=== PATIENT | female | born 2000 | race Two or more races ===

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

== ENCOUNTER 2025-05-30 18:56 | Emergency (ER) | payer MEDICAID ==
[~2025-05-30] VITALS: Ht 162.6 cm; Wt 59.0 kg
[2025-05-30] MEDS: LABETALOL HCL 20 MG/4 ML VL IV ONE (21:15)
--- NOTE | 2025-05-30 21:18 | ED.PDOC ---
HPI Comments 25 y/o F is BIBA from private residence for c/c of hypertension. hypertension, pressure-like chest pain, shortness of breath, blurry vision, and near-syncope. Patient endorses on sudden and unprovoked onset of symptoms, this evening. She states on taking twice her normal dose of Amolodipine (5mg, daily; took 10mg today). Patihenri's blood pressure is, usually, elevated at 170 systolic range. Previous episode of similar symptoms 1 month ago. Patient mentions also having cough and congestion for 1 month. No loss of consciousness. Past medical history: HTN Past surgical history: denies HPI: Poor Historian. REVIEW OF SYSTEMS: CONSTITUTIONAL: Denies acute: fever, diaphoresis, chills, generalized weakness. HEAD: Denies acute: headache, photophobia Eyes: Denies acute: Double vision, vision loss, eye pain, eye discharge. EARS: Denies acute: tinnitus, hearing loss, ear discharge, ear pain, THROAT: Denies acute: sore throat, swelling, difficulty swallowing , pain with swallowing, change in voice. NECK: Denies acute: neck pain, neck swelling, stiff neck. HEART: Denies acute : palpitations, LUNGS: Denies acute: wheezing, cough, hemoptysis ABDOMEN: Denies acute: abdominal pain, Vomiting, diarrhea, melena , hematemesis, hematochezia SKIN: Denies acute: rash, redness, lesions, itchiness. EXTREMITIES: Denies acute: calf pain, numbness, tingling, weakness, denies pain in extremity. Denies acute: Low back pain. Neuro: Denies acute: focal neurological deficit, motor or sensory focal neurological deficit, tremors, seizure like activity, confusion, change in mental status, loss of bowel or bladder function, cauda equina like symptoms. : Denies acute: dysuria, hematuria, flank pain, increase in urinary frequency. PSYCH: Denies acute: hallucination, suicidal ideation, homicidal ideation. FEMALE: Denies acute: abnormal vaginal bleeding, foul odor, unusual discharge. PHYSICAL EXAM: General: ----mild----acute distress, awake and alert. Head: normocephalic, atraumatic. No raccoon's eyes, no to sign. Neck: supple, trachea is midline, no swelling. Throat: Normal phonation. Eyes:, no erythema, no purulent discharge, no proptosis, no icterus. Heart: regular rate, regular rhythm, no significant murmur appreciated. Lungs: no apparent respiratory distress, Able to speak in full sentences. No wheezing, no rhonchi, no crackles. No stridors Clear to auscultation bilaterally. Abdomen: non tender to palpation, non distended, soft, no guarding, no rebound, + bowel sounds. Neuro: Awake, Alert, oriented to name, self, situation, follows commands GCS=15. Speech is normal. Skin: no petechia, no purpura, no cyanosis, non-pale, not jaundice. Lower extremities: --no - Pitting edema no deformity, no focal swelling, no calf TTP. Makes eye contact. moves all four extremities. Face: no apparent facial droop. ED COURSE: DISCLAIMER: This medical document was created using an electronic medical record system with voice recognition software and computerized dictation system. Although this document has been carefully reviewed, there might still be some phonetic and typographical errors. Occasional wrong-word or "sound-alike" substitutions may have occurred due to the inherent limitations of voice recognition software. These areas are purely typographical due to imperfections of the software programs and do not reflect any compromise in the patient's medical care. Please read the chart carefully and recognize, using context, where these substitutions have occurred. Chief Complaint: Dizziness Time Seen by MD: 21:10 Primary Care Provider: [facility] Reviewed Notes: Allergies Allergies: Coded Allergies: NO KNOWN ALLERGIES (Unverified , 07/30/14) Information Source: Patient Mode of Arrival: EMS Family History Family History: Unknown Social History Smoker: Non-Smoker Lives In: Home Was a procedure done? Was a procedure done?: No CP Differential Dx Differential Diagnosis: N/A Differential Diagnosis: Other (Insert hypotension evaluation) X-Ray, Labs, Meds, VS Vital Signs Date Time Temp Pulse Resp B/P (MAP) Pulse Ox O2 Delivery O2 Flow Rate FiO2 05/31/25 04:02 98 Room Air* 0 21 05/31/25 03:50 98.0 82 18 155/104 (121) 96 98.0 05/31/25 03:14 97.5 80 18 145/92 (109) 98 97.5 05/30/25 23:21 81 05/30/25 23:01 98.2 82 16 136/89 (105) 94 98.2 05/30/25 21:28 161/116 05/30/25 21:15 87 157/103 05/30/25 21:13 98.4 82 16 161/116 (131) 99 98.4 05/30/25 19:23 98.3 80 18 178/113 98 98.3 Lab Test 05/30/25 22:20 05/30/25 21:17 Range/Units Troponin I High Sensitivity < 3 L < 3 L </=34 ng/L White Blood Count 7.1 4.4-10.8 10^3/uL Red Blood Count 4.45 4.0-5.20 10^6/uL Hemoglobin 15.4 12.2-16.2 g/dL Hematocrit 43.5 36.0-46.0 % Mean Corpuscular Volume 97.8 80.0-100.0 fL Mean Corpuscular Hemoglobin 34.6 H 28.0-32.0 pg Mean Corpuscular Hemoglobin Concent 35.4 32.0-36.0 g/dL Red Cell Distribution Width 12.4 11.8-14.3 % Platelet Count 315 140-450 10^3/uL Mean Platelet Volume 7.8 6.9-10.8 fL Neutrophils (%) (Auto) 63.3 37.0-80.0 % Lymphocytes (%) (Auto) 27.9 10.0-50.0 % Monocytes (%) (Auto) 8.0 0.0-12.0 % Eosinophils (%) (Auto) 0.3 0.0-7.0 % Basophils (%) (Auto) 0.5 0.0-2.0 % Neutrophils # (Auto) 4.5 1.6-8.6 10 ^3/uL Lymphocytes # (Auto) 2.0 0.4-5.4 10 ^3/uL Monocytes # (Auto) 0.6 0-1.3 10 ^3/uL Eosinophils # (Auto) 0 0-0.8 10 ^3/uL Basophils # (Auto) 0 0-0.2 10 ^3/uL Nucleated Red Blood Cells 0.1 % Sodium Level 139 136-145 mmol/L Potassium Level 4.0 3.5-5.1 mmol/L Chloride Level 105 98-107 mmol/L Carbon Dioxide Level 25 20-31 mmol/L Anion Gap 9 5-15 Blood Urea Nitrogen 8 L 9-23 mg/dL Creatinine 0.83 0.550-1.02 mg/dL Glomerular Filtration Rate Calc 102 >90 mL/min BUN/Creatinine Ratio 9.6 L 10.0-20.0 Serum Glucose 76 74-106 mg/dL Calcium Level 10.1 8.7-10.4 mg/dL Total Bilirubin 0.6 0.2-1.0 mg/dL Aspartate Amino Transferase (AST) 98 H 13-40 U/L Alanine Aminotransferase (ALT) 116 H 7-40 U/L Alkaline Phosphatase 108 46-116 U/L Total Protein 7.9 5.7-8.2 g/dL Albumin 4.8 3.2-4.8 g/dL Current Medications Medications (Trade) Dose Ordered Sig/Fabiana Route Start Time Stop Time Status Last Admin Labetalol HCl (Labetalol HCl) 5 mg ONCE ONCE IV 05/30/25 21:15 05/30/25 21:16 DC 05/30/25 21:15 Nitroglycerin (Ntrostat Sublingual) 0.4 mg ONCE ONCE SL 05/30/25 21:15 05/30/25 21:16 DC 05/30/25 21:28 [place] [id number] Ph: [phone] DIAGNOSTIC IMAGING Diagnostic Imaging Report : [id number] Signed PATIENT: ZION REILLY ACCT: [id number] UNIT: [id number] : 2000 LOC: ER ROOM / BED: / AGE / SEX: 25 / F ADM STATUS: REG ER SERVICE 00 ORDERING PHYSICIAN: CATHI KAY DO PROCEDURE(s): CXRP - CHEST PORTABLE REASON: HTN ORDER NUMBER(s): [id number], ACCESSION NUMBER(s): [id number] CHEST RADIOGRAPH Indication: HTN Technique: Single frontal view of the chest was obtained COMPARISON: None FINDINGS: Lines and Tubes: None Lungs: Clear Pleura: No effusion. No pneumothorax. Cardiomediastinal contours: Unremarkable Bones: Unremarkable IMPRESSION: 1. No acute disease. ATED BY: PAUL HELLER MD DICTATED DATE/TIME: 05/30/252154 SIGNED BY: PAUL HELLER MD SIGNED DATE/TIME: 05/30/252154 CC: Time of 1ST Reevaluation: 21:10 Reevaluation 1ST: Unchanged Time of 2ND Reevaluation: 23:16 (The case was discussed with the [place] admitting team (HPI, physical exam, labs and diagnostic tests that were available at the time of disposition, ED course, treatment plan) on the phone. They agreed to transfer the patient to their service by [facility] for further evaluation and treatment. Dr. Monique Authorization number is--[id number]) Patient Education/Counseling: Diagnosis, Treatment Family Education/Counseling: Diagnosis, Treatment Comments MDM: patient presented with the above HPI.--hypertensive crisis----workup was initiated. patient was found with the above mentioned diagnosis. the following medications were ordered: please refer to order lists of meds and tests obtained by myself Dr. Kay. Patient ED course and VS have been stabilized. Patient has been reassessed in the ED and remained in a stable condition. Pertinent incidental findings were discussed with the patient and/or family. Patient/family voices understanding and is agreeable with plan. Patient has been observed in the ED adequate length of time to insure improvement/stability. Escalation of care considered: Consideration of escalation to observation or admission Patient required IV blood pressure medication interventions for blood pressure control. Patient was transferred to [facility] per insurance requirement to the medicine team for further evaluation and treatment of their presentation. All the reports of any imaging studies that were ordered by myself were reviewed by myself. SEPSIS Sepsis Screen Date sepsis recognized/suspect: May 30, 2025 Time Sepsis recognized/suspect: 1914 Recent Procedure: No On Antibiotic Therapy: No Respiratory Rate >20: No Heart Rate >90: No Temp<36 C (96.8 F) or >38.3 C: No SBP <90 or MAP <65 mmHG: No New Acute Mental Status Change: No Is the patient on CPAP, BIPAP,: No Physician Orders Footwear Sales Associate (05/30/25 ) Chest Portable (05/30/25 21:01) Electrocardigram (05/30/25 21:01) Imaging Transfer Request (05/31/25 00:44) Vital Signs Date Time Temp Pulse Resp B/P (MAP) Pulse Ox O2 Delivery O2 Flow Rate FiO2 05/31/25 04:02 98 Room Air* 0 21 05/31/25 03:50 98.0 82 18 155/104 (121) 96 98.0 05/31/25 03:14 97.5 80 18 145/92 (109) 98 97.5 05/30/25 23:21 81 05/30/25 23:01 98.2 82 16 136/89 (105) 94 98.2 05/30/25 21:28 161/116 05/30/25 21:15 87 157/103 05/30/25 21:13 98.4 82 16 161/116 (131) 99 98.4 05/30/25 19:23 98.3 80 18 178/113 98 98.3 Laboratory Tests Test 05/30/25 21:17 White Blood Count 7.1 10^3/uL (4.4-10.8) Departure 1 Departure Time of Disposition: 21:48 Impression: Primary Impression: Hypertensive crisis Disposition: 02 SHORT TERM HOSPITAL Admit to: Tele Condition: Guarded Discharged With: Self Critical Care Note Critical Care Time?: Yes (45 min-critical care time only) Critical care comment: Due to a high probability of clinically significant, life threatening deterioration, the patient required my highest level of preparedness to intervene emergently and I personally spent this critical care time directly and personally managing the patient. This critical care time included obtaining a history; examining the patient; pulse oximetry; ordering and review of studies; arranging urgent treatment with development of a management plan; evaluation of patient's response to treatment; frequent reassessment; and, discussions with other providers. This critical care time was performed to assess and manage the high probability of imminent, life-threatening deterioration that could result in multi-organ failure. It was exclusive of separately billable procedures and treating other patients and teaching time. Please see my other sections and the rest of the note for further information on patient assessment and treatment. I personally scribed for CATHI KAY DO ([email or web address]) on 05/30/25 at 21:18. Electronically submitted by Luis Miguel Velarde ([email or web address]). I personally scribed for CATHI KAY DO ([email or web address]) on 05/30/25 at 22:08. Electronically submitted by Luis Miguel Velarde ([email or web address]). CATHI KAY DO May 30, 2025 21:18
[2025-05-30] MEDS ORDERED: NITROGLYCERIN 0.4 MG SL TAB SL ONE (21:27)
[2025-05-30] MEDS: NITROGLYCERIN 0.4 MG SL TAB SL ONE (21:28)
[2025-05-30 21:39] LABS: Hemoglobin 15.4 g/dL (12.2-16.2); Mean Corpuscular Volume 97.8 fL (80.0-100.0); Nucleated Red Blood Cells % 0.1 %
[2025-05-30 21:41] LABS: Hematocrit 43.5 % (36.0-46.0); Mean Corpuscular Hemoglobin 34.6 pg (28.0-32.0)
--- NOTE | 2025-05-30 21:57 | DVH ---
CHEST RADIOGRAPH Indication: HTN Technique: Single frontal view of the chest was obtained COMPARISON: None FINDINGS: Lines and Tubes: None Lungs: Clear Pleura: No effusion. No pneumothorax. Cardiomediastinal contours: Unremarkable Bones: Unremarkable IMPRESSION: 1. No acute disease.
[2025-05-30 22:00] LABS: Alkaline Phosphatase 108 U/L (46-116); Anion Gap 9 (5-15); BUN/Creatinine Ratio 9.6 (10.0-20.0); Calcium 10.1 mg/dL (8.7-10.4); Carbon Dioxide 25 mmol/L (20-31); Chloride 105 mmol/L (98-107); Glucose 76 mg/dL (74-106); Potassium 4.0 mmol/L (3.5-5.1); Sodium 139 mmol/L (136-145); Total Protein 7.9 g/dL (5.7-8.2)
[2025-05-30 22:01] LABS: Albumin 4.8 g/dL (3.2-4.8); Bilirubin, Total 0.6 mg/dL (0.2-1.0)
[2025-05-30 22:30] LABS: Alanine Aminotransferase 116 U/L (7-40); Blood Urea Nitrogen 8 mg/dL (9-23)
--- NOTE | 2025-05-31 01:26 | ECG ---
[facility] Test Date: 2025-05-30 Test Time: 23:21:05 Pat Name: ZION REILLY Department: ED Room: Gender: F Specialist Physicians: edelmira : 2000 Requested By: CATHI KAY Order Number: [id number] Reading MD: Alcon Green Measurements Intervals Cobb Rate: 81 P: 63 IN: 134 QRS: 50 QRSD: 83 T: 21 QT: 352 QTc: 409 Interpretive Statements Sinus rhythm Probable left atrial enlargement Baseline wander in lead(s) V3 Electronically Signed On 05-31-2025 14:46:09 PST by Alcon Green Please click the below link to view image of tracing.
[2025-05-31] MEDS ORDERED: LABETALOL HCL 20 MG/4 ML VL IV ONE (01:57)
[2025-05-31 03:50] VITALS: BP 155/104; PULSE 82; RESP 18; TEMP 98
[2025-05-31 04:02] VITALS: O2SAT 98
== END 2025-05-31 03:50 | disposition short-term general hospital (02) ==
LOC: EDUNIT# 18:56 → EDBD 18:56 → ER 18:56
DX: I16.9 Hypertensive crisis, unspecified (principal); Z79.899 Other long term (current) drug therapy
CPT/HCPCS: 36415; 71045; 80053; 84484; 85025; 93005; 96374; 99291